=== PATIENT | female | born 1945 | race African-American/Black ===

== ENCOUNTER 2025-07-06 15:16 | Outpatient (AMB) | payer MEDICARE, SELFPAY ==
--- OUTSIDE RECORDS SUMMARY | 2024-01-05 09:00 | XMS_ITS ---
Author Organization [facility] [place] Address [address] [place] [address] Care Team Providers Care Liner Checker Name Role Phone Migration, Provider Unavailable Unavailable REASON FOR VISIT Follow-up Appt Encounters Encounter Location Date Provider Diagnosis [address] [place] [address] 01/05/2024 Provider Migration Plan Of Treatment Next Appt Details Provider Name:Jennie White, 11/10/2025 02:00:00 PM, [address] [place] [address], [address], [place], [address], [phone] Progress Notes * GIANNA STAFFORDOB:1945 ( 80 yo F)Acc No.[id number]:01/05/2024 Progress Notes Patient: DEBBY CRAWFORD Provider: Tera dodson Migration :1945 A ge:78 Y S ex:Female Date:01/05/2024 Address:[address] [place], [place] [phone] Subjective: * Chief Complaints: * F ollow-up Appt * Ocular Surgical History: Objective: Vision Examination: * Electronic signature of Prov ider Migration on 07/06/2025 at 08:19 PM EST Sign off status: Pending * Provider: Tera dodson Migration Date: 0 01/05/2024 Generated for Printi ng/Faxing/eTransmitting on: 1 09/06/2024 08:19 PM EST
--- OUTSIDE RECORDS SUMMARY | 2024-05-10 08:30 | XMS_ITS ---
Author Organization [facility] [place] Address [address] [place] [address] Care Team Providers Care Government Affairs Fellow Name Role Phone Migration, Provider Unavailable Unavailable REASON FOR VISIT Follow-up Appt Encounters Encounter Location Date Provider Diagnosis [address] [place] [phone] 05/10/2024 Provider Migration Plan Of Treatment Next Appt Details Provider Name:Jennie White, 11/10/2025 02:00:00 PM, [address] [place] [address], [address] [facility], [place], [address], [phone] Progress Notes * GIANNA STAFFORDOB:1945 ( 80 yo F)Acc No.[id number]:05/10/2024 Progress Notes Patient: DEBBY CRAWFORD Provider: Tera dodson Migration :1945 A ge:79 Y S ex:Female Date:05/10/2024 Address:[address] [place], [place] [phone] Subjective: * Chief Complaints: * F ollow-up Appt * Ocular Surgical History: Objective: Vision Examination: * Electronic signature of Prov ider Migration on 07/06/2025 at 08:20 PM EST Sign off status: Pending * Provider: Tera dodson Migration Date: Generated for Anhi ng/Fabrigidog/eTransmitting on: 1 09/06/2024 08:20 PM EST
--- OUTSIDE RECORDS SUMMARY | 2024-09-07 08:30 | XMS_ITS ---
Author Organization [facility] [place] Address [address] [place] [address] Care Team Providers Care Online Education Manager Name Role Phone Migration, Provider Unavailable Unavailable REASON FOR VISIT Follow-up Appt Encounters Encounter Location Date Provider Diagnosis [address] [place] [address] 09/07/2024 Provider Migration Plan Of Treatment Next Appt Details Provider Name:Jennie White, 11/10/2025 02:00:00 PM, [address] [place] [address], [address], [place], [address], [phone] Progress Notes * GIANNA STAFFORDOB:1945 ( 80 yo F)Acc No.[id number]:09/07/2024 Progress Notes Patient: DEBBY CRAWFORD Provider: Tera dodson Migration :1945 A ge:79 Y S ex:Female Date:09/07/2024 Address:[address] [place], [place] [phone] Subjective: * Chief Complaints: * F ollow-up Appt * Ocular Surgical History: Objective: Vision Examination: * Electronic signature of Prov ider Migration on 07/06/2025 at 08:20 PM EST Sign off status: Pending * Provider: Tera dodson Migration Date: 0 09/07/2024 Generated for Printi ng/Faxing/eTransmitting on: 1 09/06/2024 08:20 PM EST
--- OUTSIDE RECORDS SUMMARY | 2024-09-23 08:45 | XMS_ITS ---
Author Organization [facility] [place] Address [address] [place] [address] Care Team Providers Care Oil Truck Driver Name Role Phone Migration, Provider Unavailable Unavailable REASON FOR VISIT Follow-up Appt Encounters Encounter Location Date Provider Diagnosis [address] [place] [address] 09/23/2024 Provider Migration Plan Of Treatment Next Appt Details Provider Name:Jennie White, 11/10/2025 02:00:00 PM, [address] [place] [address], [address], [place], [address], [phone] Progress Notes * GIANNA STAFFORDOB:1945 ( 80 yo F)Acc No.[id number]:09/23/2024 Progress Notes Patient: DEBBY CRAWFORD Provider: Tera dodson Migration :1945 A ge:79 Y S ex:Female Date:09/23/2024 Address:[address] [place], [place] [phone] Subjective: * Chief Complaints: * F ollow-up Appt * Ocular Surgical History: Objective: Vision Examination: * Electronic signature of Prov ider Migration on 07/06/2025 at 08:19 PM EST Sign off status: Pending * Provider: Tera dodson Migration Date: 0 09/23/2024 Generated for Printi ng/Faxing/eTransmitting on: 1 09/06/2024 08:19 PM EST
--- OUTSIDE RECORDS SUMMARY | 2024-09-23 08:45 | XMS_ITS ---
Author Organization [facility] [place] Address [address] [place] [address] Care Team Providers Care Retail Sales Associate Bilingual Name Role Phone Tim Hernandez Unavailable [phone] REASON FOR VISIT Follow-up Appt Encounters Encounter Location Date Provider Diagnosis [address] [place] [address] 09/23/2024 Tim Hernandez Plan Of Treatment Next Appt Details Provider Name:Jennie White, 11/10/2025 02:00:00 PM, [address] [facility], [address], [place], [address], [phone] Progress Notes * GIANNA STAFFORDOB:1945 ( 80 yo F)Acc No.[id number]:09/23/2024 Progress Notes Patient: DEBBY CRAWFORD Provider: Nilton MALONE :1945 A ge:79 Y S ex:Female Date:09/23/2024 Address:[address] [place], [place] [id number] Subjective: * Chief Complaints: * F ollow-up Appt * Ocular Surgical History: Objective: Vision Examination: * Electronic signature of Gallo Hernandez PA-C on 07/06/2025 at 08:20 PM EST Sign off status: Pending * Provider: Nilton MALONE Date: 0 09/23/2024 Generated for Printi ng/Faxing/eTransmitting on: 1 09/06/2024 08:20 PM EST
--- OUTSIDE RECORDS SUMMARY | 2025-01-27 09:00 | XMS_ITS ---
Author Organization [facility], [place] Address [address] [place] [address] Care Team Providers Care Hvac Manager Name Role Phone Jennie White [phone] Allergies Allergen (clinical drug ingredient) Drug/Non Drug Allergy documented on EMR Reaction Allergy Type Onset Date Status Sulfur Unknown Drug Allergy Active REASON FOR VISIT Follow-up Appt, congested Vital Signs Blood pressure systolic 151 mm Hg 01/28/20 25 Blood pressure diastolic 80 mm Hg 025 Heart Rate 59 /min 01/27/2025 Respiratory Rate 20 /min 01/27/2025 Height 5.4 in 01/27/2025 Weight 116 lbs 01/27/2025 BMI 2796.57 kg/m2 01/27/2025 Oximetry 98 % 01/27/2025 Height-cm 13.72 cm 01/27/2025 Weight-kg 52.62 kg 01/27/2025 unable to get temp Encounters Encounter Location Date Provider Diagnosis [facility] [address] [facility] [address] [place] [address] 01/27/2025 Jennie Cindy Plan Of Treatment Next Appt Details Provider Name:Jennie Sagmar, 11/10/2025 02:00:00 PM, [address] [facility], [address], [place], [address], [phone] Progress Notes * GIANNA STAFFORDOB:1945 ( 80 yo F)Acc No.[id number]:01/27/2025 Progress Notes Patient: Evon GRISELDADEBBY Provider: Kin White :1945 A ge:79 Y S ex:Female Date:01/27/2025 Address:[address] [place] [address], [place], [id number] Subjective: * Chief Complaints: * F ollow-up ApptCongested * Medications: N one * Allergies: S ulfur Objective: * Vitals: B P: 151/80 mm Hg, HR: 59 /min, RR: 20 /min, Oxygen sat %: 98 %, Ht: 5.4 in, Wt: 116 lbs, BMI: 2796.57 Index, Wt-k.62 kg, Ht-cm: 13.72 cm, Body Surface Area: 0.45. unable to get temp. * Electronic signature of Heat her White on 07/06/2025 at 08:20 PM EST Sign off status: Pending * Provider: Kin White Date: 0 01/27/2025 Generated for Dragan culver/Shahida/Justice on: 1 09/06/2024 08:20 PM EST
--- OUTSIDE RECORDS SUMMARY | 2025-03-29 10:45 | XMS_ITS ---
Author Organization [facility], [place] Address [address] [place] [address] Care Team Providers Care Warp Clamper Name Role Phone Jennie White Unavailable [phone] Allergies Allergen (clinical drug ingredient) Drug/Non Drug Allergy documented on EMR Reaction Allergy Type Onset Date Status Sulfur Unknown Drug Allergy Active REASON FOR VISIT MED REFILL, MEDS NOT ON FILE Medications Medication SIG (Take, Route, Frequency, Duration) Notes Start Date End Date Status Pravastatin Sodium 40 MG Tablet 1 tablet Orally Once a day Active Telmisartan 40 MG Tablet 1 tablet Orally Once a day Active Donepezil HCl 10 MG Tablet 1 tablet at b edtime Orally Once a day Active Claritin 10 MG Tablet 1 tablet Orally On ce a day Active Cetirizine HCl 10 MG Tablet 1 tablet Ora lly Once a day Active Sertraline HCl 50 MG Tablet 1 tablet Ora lly Once a day; Duration: 100 days Active OLANZapine 5 MG Tablet 1 tablet Orally O nce a day; Duration: 100 days Active Vital Signs Height 5.4 in 03/29/2025 Height-cm 13.72 cm 03/29/2025 Encounters Encounter Location Date Provider Diagnosis [address] [place] [address] 03/29/2025 Jennie White Depression, unspecified F32.A and Chronic dementia F03.90 Assessments Encounter Date Diagnosis (ICD Code) Assessment Notes Treatment Notes Treatment Clinical Notes Section Notes 03/29/2025 Depression, unspecified (ICD-10 - F32.A) 03/29/2025 Chronic dementia (ICD-10 - F03.90) Plan Of Treatment Medication Medication Name Sig Start Date Stop Date Notes Sertraline HCl 50 MG Tablet 1 tablet Ora lly Once a day; Duration: 100 days OLANZapine 5 MG Tablet 1 tablet Orally O nce a day; Duration: 100 days Next Appt Details Provider Name:Jennie White, 11/10/2025 02:00:00 PM, [address] [place] [address], [address], [place], [address], [phone] History and Physical Notes * HPI (History of Present Illness) Category Sub-Category Detail Notes Category Not es General Subjective: - Needs medication refills for Olanzapine and Sertraline. Already ran out of Olanzapine. - [facility] pharmacy reported they did not receive refill authorization from the office. - Patient is taking Olanzapine for agitation related to dementia. - Medication: Olanzapine 5mg, Sertraline 50mg. - No report of allergies. Objective: - No observable data mentioned in the dry wall finisher. Assessment: - Dementia with associated agitation. Plan: - Refill prescriptions for Olanzapine 5mg, provide 100 tablets with three refills. - Refill prescriptions for Sertraline 50mg, provide 100 tablets with three refills. - Patient advised to contact the office if there are any issues with pharmacy refills. Progress Notes * GIANNA STAFFORDOB:1945 ( 80 yo F)Acc No.[id number]:03/29/2025 Progress Notes Patient: DEBBY CRAWFORD Provider: Kin White :1945 A ge:80 Y S ex:Female Date:03/29/2025 Address:[address] [place], [place] [phone] Subjective: * Chief Complaints: * M ED REFILL, MEDS NOT ON FILE * HPI: G eneral: Subjective: - Needs medication refills for Olanzapine and Sertraline. Already ran out of Olanzapine. - [facility] pharmacy reported they did not receive refill authorization from the office. - Patient is taking Olanzapine for agitation related to dementia. - Medication: Olanzapine 5mg, Sertraline 50mg. - No report of allergies. Objective: - No observable data mentioned in the dry wall finisher. Assessment: - Dementia with associated agitation. Plan: - Refill prescriptions for Olanzapine 5mg, provide 100 tablets with three refills. - Refill prescriptions for Sertraline 50mg, provide 100 tablets with three refills. - Patient advised to contact the office if there are any issues with pharmacy refills. * Family History: F ather: . M other: . Healthcare Proxy- . * Medications: T akingClaritin 10 MG Tablet 1 tablet Orally Once a day Donepezil HCl 10 MG Tablet 1 tablet at bedtime Orally Once a day Cetirizine HCl 10 MG Tablet 1 tablet Orally Once a day Telmisartan 40 MG Tablet 1 tablet Orally Once a day Sertraline HCl 50 MG Tablet 1 tablet Orally Once a day Pravastatin Sodium 40 MG Tablet 1 tablet Orally Once a day OLANZapine 5 MG Tablet 1 tablet Orally Once a day Taking Claritin 10 MG Tablet 1 tablet Orally Once a day Taking Donepezil HCl 10 MG Tablet 1 tablet at bedtime Orally Once a day Taking Cetirizine HCl 10 MG Tablet 1 tablet Orally Once a day Taking Telmisartan 40 MG Tablet 1 tablet Orally Once a day Taking Sertraline HCl 50 MG Tablet 1 tablet Orally Once a day Taking Pravastatin Sodium 40 MG Tablet 1 tablet Orally Once a day Taking OLANZapine 5 MG Tablet 1 tablet Orally Once a day * Allergies: Marcy Bryantergies Verified. Objective: * Vitals: H t: 5.4 in, Ht-cm: 13.72 cm. Assessment: * Assessment: 1. D epression, unspecified - F32.A 2 . C hronic dementia - F03.90 ? Plan: * Treatment: 2. C hronic dementia Refill OLANZapine Tablet, 5 MG, 1 tablet, Orally, Once a day, 100 days, 100, Refills 3. * Electronic signature of Mandi White on 07/06/2025 at 08:20 PM EST Sign off status: Pending * Provider: Kin White Date: 0 03/29/2025 Generated for Dragan culver/Shahida/Justice on: 1 09/06/2024 08:20 PM EST
--- OUTSIDE RECORDS SUMMARY | 2025-06-06 08:30 | XMS_ITS ---
Author Organization [facility], [place] Address [address] [place] [address] Care Team Providers Care Boilermaker Industrial Boilers Name Role Phone Jennie White Unavailable [phone] Allergies Allergen (clinical drug ingredient) Drug/Non Drug Allergy documented on EMR Reaction Allergy Type Onset Date Status Sulfur Unknown Drug Allergy Active REASON FOR VISIT 4MO F/U, flu shot today, report pt spits a lot and is congested Medications Medication SIG (Take, Route, Frequency, Duration) Notes Start Date End Date Status Cetirizine HCl 10 MG Tablet 1 tablet Orally Once a day Not-Taking Telmisartan 40 MG Tablet 1 tablet Orally Once a day Active Pravastatin Sodium 40 MG Tablet 1 tablet Orally Once a day; Duration: 90 days Active Sertraline HCl 50 MG Tablet 1 tablet Orally Once a day; Duration: 100 days Active OLANZapine 5 MG Tablet 1 tablet Orally O nce a day; Duration: 100 days Active Claritin 10 MG Tablet 1 tablet Orally On ce a day Active Donepezil HCl 10 MG Tablet 1 tablet at bedtime Orally Once a day Active Immunizations Vaccine Route Administration Date Status Comme nts Influenza, high dose seasonal IM Intramuscular 06/06/2025 Administered Social History Section Notes: Denies nicotine, ETOH and abebe bstances Vital Signs Blood pressure systolic 120 mm Hg 06/06/20 25 Blood pressure diastolic 86 mm Hg 025 Height 5.4 in 06/06/2025 Weight 119 lbs 06/06/2025 BMI 2868.9 kg/m2 06/06/2025 Height-cm 13.72 cm 06/06/2025 Weight-kg 53.98 kg 06/06/2025 Encounters Encounter Location Date Provider Diagnosis [facility] [address] [place] [address] 06/06/2025 Jennie White Plan Of Treatment Next Appt Details Provider Name:Jennie White, 11/10/2025 02:00:00 PM, [address] [place] [address], [address], [place], [address], [phone] Progress Notes * GIANNA STAFFORDOB:1945 ( 80 yo F)Acc No.[id number]:06/06/2025 Progress Notes Patient: DEBBY CRAWFORD Provider: Kin White :1945 A ge:80 Y S ex:Female Date:06/06/2025 Address:[address] [place] [address], [facility] Subjective: * Chief Complaints: * 4 MO F/UFlu shot todayHusband report pt spits a lot and is congested * Family History: F ather: . M other: . Healthcare Proxy- . * Social History: Social History Verified. D enies nicotine, ETOH and substances. * Medications: T akingClaritin 10 MG Tablet 1 tablet Orally Once a day Donepezil HCl 10 MG Tablet 1 tablet at bedtime Orally Once a day Telmisartan 40 MG [...] at bedtime Orally Once a day Taking Telmisartan 40 MG Tablet 1 tablet Orally Once a day Taking Sertraline HCl 50 MG Tablet 1 tablet Orally Once a day Taking OLANZapine 5 MG Tablet 1 tablet Orally Once a day Taking Pravastatin Sodium 40 MG Tablet 1 tablet Orally Once a day Not-TakingCetirizine HCl 10 MG Tablet 1 tablet Orally Once a day Not-Taking Cetirizine HCl 10 MG Tablet 1 tablet Orally Once a day * Allergies: S ulfuryesAllergies Verified. Objective: * Vitals: B P: 120/86 mm Hg, Ht: 5.4 in, Wt: 119 lbs, BMI: 2868.9 Index, Wt-k.98 kg, Ht-cm: 13.72 cm, Body Surface Area: 0.45. Plan: * Immunizations: Influenza, high dose seasonal : 0.5 mL (Dose No:1) (Route: Intramuscular) given by Lisa Nixon on Left Deltoid * Procedure Codes: 9 0662 FLU VACC PRSV FREE INC [id number] IMMUNIZATION ADMIN Billing Information: * Procedure Codes: 94201 FLU VACC PRSV FREE INC ANTIG. 40560 IMMUNIZATION ADMIN. * Electronic signature of Mandi White on 07/06/2025 at 08:20 PM EST Sign off status: Pending * Provider: Kin White Date: 08/06/2024 Generated for Dragan culver/Shahida/Justice on: 09/06/2024 08:20 PM EST
--- NOTE | 2025-07-06 15:21 | MHC.OFFVIS ---
Intake Visit Reasons: 6M AD Accompanied by: Spouse Allergies No Known Allergies Allergy (Verified 07/06/25 15:26) Medication List - Last Reconciled 07/06/25 by Bruna Nelson CNP donepezil 10 mg PO BEDTIME 90 days olanzapine 5 mg PO DAILY pravastatin 40 mg PO DAILY sertraline 50 mg PO DAILY HPI Comments Details: She was doing okay. Memory was about the same. Occasionally she would not recognize and would ask him who he was. She needed help with dressing and showering.?Appetite was so-so, drinks Ensure and Boost. Able to feed herself. Mood was okay for the most part. Sleep was okay. She tripped and fell a few months ago, seen at [facility] ER without any injuries.? Occasionally spits out medications. Has had cognitive decline and progressive memory loss over the last couple of years, becomes agitated and angry easily and gets combative. She has no insight into her condition. 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 She has 3 children, 2 sons and 1 daughter, who live in [facility]. She lives with her of more than 40 years. [facility] Medical History (Updated 07/06/25 @ 15:25 by Bruna Nelson CNP) Hyperlipidemia Hypertension Alzheimer's dementia Review of Systems Const Denies chills, Denies daytime sleepiness, Denies difficulty sleeping, Denies fatigue, Denies fever(s), Denies frequent falls, Denies headache(s), Denies increased appetite, Denies poor appetite, Denies snoring, Denies weakness, Denies weight gain and Denies weight loss Eyes Denies loss of vision ENT Denies vertigo, Denies dizziness, Denies headache(s) and Denies neck pain Card Denies chest pain at rest, Denies chest pain with activity, Denies syncope, Denies leg edema, Denies palpitations, Denies dyspnea and Denies dyspnea on exertion Resp Denies cough, Denies dyspnea, Denies dyspnea on exertion and Denies snoring GI Denies abdominal pain, Denies constipation, Denies heartburn, Denies diarrhea and Denies nausea Denies urinary frequency, Reports urinary incontinence and Denies urinary urgency Musc Denies abnormal gait, Denies back pain, Denies myalgias, Denies arthralgias, Denies neck pain, Denies numbness and Denies tingling Neuro Denies abnormal gait, Denies vertigo, Denies dizziness, Denies syncope, Denies frequent falls, Denies headache(s), Denies lack of coordination, Denies loss of vision, Reports memory loss, Denies numbness, Denies Other visual disturbances, Denies restless legs, Denies seizure-like activity, Denies tingling, Denies paresthesias, Denies tremor(s) and Denies weakness Psych Denies anxiety, Denies depression, Denies auditory hallucinations, Reports memory loss and Denies visual hallucinations Endo Denies fatigue and Denies palpitations Physical Exam Const Other: General Appearance:? normal, in no acute distress. Heart:? S1, S2 normal, no murmurs. Lungs:? clear anteriorly and posteriorly. Musculoskeletal:? normal. Extremities:? no edema. Psych:? alert, as below. Neuro Other: Abnormal Neurological Findings:?MMSE < 14/30. Hard of hearing. She was unable to tell me her age. She was able to tell me her month and date, and eventually gave correct year after few tries. She was able to tell me that she was here with her . Mental Status: alert, as below. Cranial Nerves: Pupils are equal, round, and reactive to light. External ocular muscles are intact. Visual marcum are full, no ptosis. Face is symmetrical, no facial weakness or droop. Facial sensations are normal. Tongue protrudes in midline. Palate elevates symmetrically. Shoulder shrugging is normal Motor Examination: Normal muscle tone, bulk and strength. No atrophy or fasciculations. No drift of the extended upper extremities. DTR 2+. Plantars are flexor. Sensory Exam: Normal light touch, temperature, pinprick, vibration, and joint-position sensations. Rhomberg sign is absent. Coordination: No ataxia. No titubation. Gait Exam: Slow and cautious. Extrapyramidal System: No tremor, rigidity with normal facial expressions. No bradykinesia. No bradyphrenia. Normal arm swing and posture. No propulsion or retropulsion. Speech: Normal. MMSE Level of Consciousness: Alert. Orientation: Does not know year, month, date, day and season. Does not know correct city, county and state. Does not know correct location and floor. Registration: Able to register 3 objects. Attention: Serial 7's unable. Recall: Able to recall 0 out of 3 objects. Language: Normal spontaneous speech Total Score: <14/30. Results Reviewed Results Reviewed: 08/09/21 EEG- WNL Labs normal Assessment & Plan Assessment & Plan (1) Alzheimer's dementia: Code(s): G30.9 - Alzheimer's disease, unspecified; F02.80 - Dementia in other diseases classified elsewhere, unspecified severity, without behavioral disturbance, psychotic disturbance, mood disturbance, and anxiety Category: Medical Qualifiers: Alzheimer's disease onset: unspecified onset Dementia severity: unspecified severity Dementia behavioral or psychological symptom: unspecified whether behavioral, psychotic, or mood disturbance or anxiety Qualified Code(s): G30.9 - Alzheimer's disease, unspecified; F02.80 - Dementia in other diseases classified elsewhere, unspecified severity, without behavioral disturbance, psychotic disturbance, mood disturbance, and anxiety Plan: Continue donepezil 10mg 1 tablet at bedtime. Follow up in 6 months or sooner as needed. Coding Level of Care Code Est Pt Level 4 (50336) Diagnoses Alzheimer's dementia, unspecified dementia severity, unspecified timing of dementia onset, unspecified whether behavioral, psychotic, or mood disturbance or anxiety G30.9; F02.80 Alzheimer's disease onset: unspecified onset Dementia severity: unspecified severity Dementia behavioral or psychological symptom: unspecified whether behavioral, psychotic, or mood disturbance or anxiety
--- OUTSIDE RECORDS SUMMARY | 2025-07-06 20:19 | XMS_ITS | Patient Health Record ---
Author Organization [facility] [place] Address [address] [place] [address] Care Team Providers Care Silver Plater Name Role Phone MichoacanoTim salas Unavailable [phone] Migration, Provider Unavailable Unavailable Jennie White Unavailable [phone] Allergies Allergen (clinical drug ingredient) Drug/Non Drug Allergy documented on EMR Reaction Allergy Type Onset Date Status Sulfur Unknown Drug Allergy Active Reason For Referral No Information Medications Medication SIG (Take, Route, Frequency, Duration) Notes Start Date End Date Status Claritin 10 MG Tablet 1 tablet Orally On ce a day Active Donepezil HCl 10 MG Tablet 1 tablet at bedtime Orally Once a day Active Cetirizine HCl 10 MG [...] nce a day; Duration: 100 days Active Immunizations Vaccine Route Administration Date Status Comme nts Influenza, high dose seasonal IM Intramuscular 06/06/2025 Administered Social History Section Notes: Denies nicotine, ETOH and abebe bstances Vital Signs Heart Rate 59 /min 01/27/2025 unable to get t emp Respiratory Rate 20 /min 01/27/2025 unable to g et temp Height-cm 13.72 cm 06/06/2025 Oximetry 98 % 01/27/2025 unable to get t emp Blood pressure diastolic 86 mm Hg 06/06/2025 Weight-kg 53.98 kg 06/06/2025 Height 5.4 in 06/06/2025 Blood pressure systolic 120 mm Hg 06/06/2025 Weight 119 lbs 06/06/2025 BMI 2868.9 kg/m2 06/06/2025 Encounters Encounter Location Date Provider Diagnosis [facility] [place] [address] [facility] [address] [place] [phone] 09/07/2024 Provider Migration [facility] [place] [address] [facility] [address] [place] [phone] 09/23/2024 Provider Migration [facility] [place] [address] [facility] [address] [place] [phone] 09/23/2024 Tim Hernandez [facility] [place] [address] [facility] [address] [facility] [address] [place] [phone] 01/27/2025 Jennieher White [facility], [address] [phone] 03/29/2025 Jennieher White Depression, unspecified F32.A and Chronic dementia F03.90 [facility], [address] [phone] 06/06/2025 Jennieher White [facility], [address] [place] [phone] 03/28/2025 Jennie White [facility], [address] [place] [phone] 05/05/2025 Jennie Victorinomar Assessments Encounter Date Diagnosis (ICD Code) Assessment Notes Treatment Notes Treatment Clinical Notes Section Notes 03/29/2025 Depression, unspecified (ICD-10 - F32.A) 03/29/2025 Chronic dementia (ICD-10 - F03.90) Plan Of Treatment Next Appt Details Provider Name:Jennie White, 11/10/2025 02:00:00 PM, [address] [place] [address], Suite [facility], [place], [address], [phone] Insurance Providers Payer Name Payer Address Payer Phone Subscriber Number Group Number Insured Name Patient Relationship to Insured Coverage Start Date Coverage End Date [employer] [address] VERENA LOVELACE [phone] [id number] DEBBY STAFFORD Self - patient is the insured [facility] [address] RAGHAV ROMANO [phone] [id number] DEBBY STAFFORD Self - patient is the insured
--- OUTSIDE RECORDS SUMMARY | 2025-07-06 20:20 | XMS_ITS | Clinical Summary ---
Author Organization [address] [place] [address] Phone Care Team Providers Care Commercial Carpet Installer Name Role Phone Manuel Jorge MD Primary Care Provider [phone] Allergies Active Allergy Reactions Criticality Noted Date Comments Sulfa (Sulfonamide Antibiotics) 11/18 Surgical History Surgery Date Site/Laterality Comments CARPAL TUNNEL RELEASE Bilateral Medical History Medical History Date Comments Alzheimer dementia ([facility] V24, [facility] V28) Hypertension Social History Tobacco Use Types Packs/Day Years Used Date Smoking Tobacco: Former Cigarettes Smokeless Tobacco: Never Tobacco Cessation:Counseling Given: Not Answered Alcohol Use Standard Drinks/Week Comments Never 0 (1 standard drink = 0.6 oz pur e alcohol) Comments Unknown Sex and Gender Information Value Date Recorded Sex Assigned at Not on file Legal Sex Female 10:43 PM EST Gender Identity Not on file Sexual Orientation Not on file Last Filed Vital Signs Vital Sign Reading Time Taken Comments Blood Pressure 154/85 11/27/2024 9:27 PM EDT Pulse 58 11/27/2024 9:27 PM EDT Temperature 36.2 C (97.2 F) 11/27/2024 9:27 PM EDT Respiratory Rate 16 11/27/2024 9:27 PM EDT Oxygen Saturation 96% 11/27/2024 6:44 PM EDT Inhaled Oxygen Concentration - - Weight 51.7 kg (114 lb) 11/27/2024 4:36 PM EDT Height 157.5 cm (5' 2 ) 11/27/2024 4:36 PM EDT Body Mass Index 20.85 11/27/2024 4:36 PM EDT Plan of Treatment Health Maintenance Due Date Last Done Comments DTaP,Tdap,and Td Vaccines (1 - Tdap) 1964 Pneumococcal Vaccine: 50+ Years (1 of 1 - PCV) 1993 Zoster Vaccines (1 of 2) 1993 Falls Risk Assessment 06/23/2022 Osteoporosis Screening (Bone Density Screening) 06/23/2022 Social Influencers of Health Screening 06/23/2022 Medicare Annual Wellness Visit 08/27/2023 08/27/2022 Depression Screening 07/21/2024 COVID-19 Vaccine ( season) 2025 05/13/2024, 04/15/2023, 05/29/2022, Additional history exists Influenza Vaccine (#1) 2025 , 06/21/2021, 05/17/2019, Additional history exists Cholesterol Screening (Lipid Panel) 09/23/2029 09/23/2024 RSV Immunization Adult Patients Completed 05/19/2023 HIB Vaccines Aged Out No longer eligi ble based on patient's age to complete this topic HPV Vaccines Aged Out No longer eligi ble based on patient's age to complete this topic Hepatitis A Vaccines Aged Out No long er eligible based on patient's age to complete this topic Hepatitis B Vaccines Aged Out No long er eligible based on patient's age to complete this topic IPV Vaccines Aged Out No longer eligi ble based on patient's age to complete this topic MMR Vaccines Aged Out No longer eligi ble based on patient's age to complete this topic Meningococcal ACWY Vaccine Aged Out N o longer eligible based on patient's age to complete this topic Meningococcal B Vaccine Aged Out No l onger eligible based on patient's age to complete this topic RSV Immunization Patients Under 20 months Aged Out No longer eligible based on patient's age to complete this topic Varicella Vaccines Aged Out No longer eligible based on patient's age to complete this topic Procedures Procedure Name Priority Date/Time Associated Diagnosis Comments LIPID PANEL WITH REFLEX TO DIRECT LDL Routine 09/23/2024 2:26 PM EST Essential hypertension, malignant Hyperlipemia Pretibial myxedema from Last 3 Months or Most Recently Relevant to Health Maintenance Results * (ABNORMAL) Lipid panel with reflex to direct LDL (09/23/2024 2:26 PM EST) Cholesterol 208(H) 0 - 200 mg/dL LAB CHEMISTRY METHOD 09/23/2024 4:19 PM [facility] Triglycerides 84 0 - 150 mg/dL LAB CHEMISTRY METHOD 09/23/2024 4:19 PM [facility] HDL 77 >=40 mg/dL LAB CHEMISTRY METHOD 09/23/2024 4:19 PM [facility] LDL Calculated 114(H) 0 - 100 mg/dL LAB CHEMISTRY METHOD 09/23/2024 4:19 PM [facility] VLDL Cholesterol Rainer 16.8 mg/dL LAB CHEMISTRY METHOD 09/23/2024 4:19 PM [facility] Non HDL Chol. (LDL+VLDL) 131 <145 mg/dL LAB CHEMISTRY METHOD 09/23/2024 4:19 PM [facility] Chol/HDL Ratio 2.7 0.0 - 4.4 LAB CHEMISTRY METHOD 09/23/2024 4:19 PM [facility] Blood Venous blood specimen / Unknown Venipuncture / Unknown 09/23/2024 2:26 PM EST 09/23/2024 3:29 PM EST us Tim MALONE LAB BLOOD ORDERABLES Final Res ult [facility] [address] [place] [address], from Last 3 Months or Most Recently Relevant to Health Maintenance Insurance [employer] Care Teams Commercial Carpet Installer Relationship Specialty Start Date End Date Manuel Jorge MD [address] [place] [address] PCP - General Internal Medicine 11/27/24
--- OUTSIDE RECORDS SUMMARY | 2025-07-06 20:20 | XMS_ITS | Encounter Summary ---
Author Organization [facility] Address [address] [facility] [address] [place] [address] Care Team Providers Care Claim Attorney Name Role Phone Jose Raul Bui MD Primary Care Provider [phone] Jose Raul Bui MD Unavailable [phone] Reason for Visit * Reason Comments Med Refill Encounter Details Date Type Department Care Team (Late st Contact Info) Description 10/02/2024 Refill [facility] [address] [facility] [place] [id number] Michael Andrew MD [address] [place] [phone] Herpes simplex virus (HSV) infection Social History Tobacco Use Types Packs/Day Years Used Date Smoking Tobacco: Former Smokeless Tobacco: Never Comments Unknown Sex and Gender Information Value Date Recorded Sex Assigned at Not on file Legal Sex Female 2:47 AM EST Gender Identity Not on file Sexual Orientation Not on file documented as of this encounter Plan of Treatment Not on file documented as of this encounter Visit Diagnoses Diagnosis Herpes simplex virus (HSV) infection documented in this encounter Care Teams Claim Attorney Relationship Specialty Start Date End Date Jose Raul Bui MD [address] [place] [address] PCP - General 08/24/21 Jose Raul Bui MD [address] [place] [address] 08/24/21 documented as of this encounter
--- OUTSIDE RECORDS SUMMARY | 2025-07-06 20:20 | XMS_ITS | Clinical Summary ---
Author Organization [facility] Address [address] [facility] [address] [place] [address] Care Team Providers Care Front Desk Clerk Name Role Phone Jose Raul Bui MD Primary Care Provider [phone] Jose Raul Bui MD Unavailable [phone] Allergies No known active allergies Medications Lac-Hydrin Five 5 % lotion in the morning and at bedtime. 1 Active clobetasol (Temovate) 0.05 % cream Apply topically in the morning and at bedtime. 1 Active donepezil (Aricept) 10 mg tablet Take 10 mg by mouth at bedtime. 2 Active pravastatin (Pravachol) 40 mg tablet Take 40 mg by mouth in the morning. 2 Active sertraline (Zoloft) 25 mg tablet Take 25 mg by mouth in the morning. 2 Active telmisartan-hyd rochlorothiazid (MIcarDIS HCT) 40-12.5 mg tablet Take 1 tablet by mouth in the morning. 1 Active loteprednol etabonate (Lotemax) 0.5 % ointmentIndicat ions:Keratoconj unctivitis sicca of both eyes not specified as Sjogren's Apply 1/4 inch at bedtime to both eyes 5 g 11 3 Active valACYclovir (Valtrex) 500 mg tabletIndicatio ns:Herpes simplex virus (HSV) infection TAKE 1 TABLET BY MOUTH EVERY DAY 90 tablet 3 4 Active Active Problems Problem Noted Date Diagnosed Date Blepharitis of upper and lower eyelids of both e yes 11/17/2020 10/31/2022 Unspecified ectropion of left lower eyelid 02/1910/31/2022 Allergic conjunctivitis of both eyes 01/13/2018 10/31/2022 Trichiasis of left lower eyelid 11/28/2017 10/31/2022 Conjunctivochalasis of left eye 01/03/2017 10/31/2022 Dry eye syndrome of both eyes 11/01/2016 Herpes simplex keratitis of both eyes 11/01/2016 10/31/2022 Overview (10/31/2022): 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 10/31/2022 Keratitis 08/14/2016 10/31/2022 Primary open angle glaucoma (POAG) of both eyes 08/14/2016 10/31/2022 Overview (10/31/2022): - Primary open angle glaucoma, cm; Right Eye Mild, Left Eye Severe (H40.1111, H40.1123) Social History Tobacco Use Types Packs/Day Years Used Date Smoking Tobacco: Former Smokeless Tobacco: Never Tobacco Cessation:Counseling Given: Not Answered Comments Unknown Sex and Gender Information Value Date Recorded Sex Assigned at Not on file Legal Sex Female 2:47 AM EST Gender Identity Not on file Sexual Orientation Not on file Plan of Treatment Health Maintenance Due Date Last Done Comments Bone Density Scan 1943 DTaP/Tdap/Td Vaccines (1 - Tdap) 1962 Pneumococcal Vaccine: 50+ Years (1 of 1 - PCV) 1993 Zoster Vaccines (1 of 2) 1993 Medicare Annual Wellness (AWV) 01/19/2016 Depression Screening 07/21/2024 COVID-19 Vaccine ( season) 2025 05/29/2022, 12/10/2021, 06/07/2021, Additional history exists Influenza Vaccine (#1) 2025 HIB Vaccines Aged Out No longer eligi ble based on patient's age to complete this topic HPV Vaccines (No Doses Required) Completed Hepatitis A Vaccines Aged Out No long [...] patient's age to complete this topic Meningococcal Vaccine Aged Out No spencer deric eligible based on patient's age to complete this topic Rotavirus Vaccines Aged Out No longer eligible based on patient's age to complete this topic Insurance MEDICARE PART A AND B [place] MEDICARE PLUS SUPPLEMENT Care Teams Front Desk Clerk Relationship Specialty Start Date End Date Jose Raul Bui MD [address] [place] [address] PCP - General 08/24/21 Jose Raul Bui MD [address] [place] [id number] 08/24/21
--- OUTSIDE RECORDS SUMMARY | 2025-07-06 20:21 | XMS_ITS ---
Author Name [facility] Organization Unknown Encounters Encounter Type Encounter Reason Primary Diagnosis Location Date [facility]ulatory [facility] 11/29/2024 [facility] 05/18/2024 Care Team Organization Name Specialty Phone Email Start Date End [facility] Critical [facility] Medical Group 11/13/2024 [facility] Manuel [facility] 08/22/2024 [facility] Jose Raul [place] [facility] 02/05/2024 [facility] Jose Raul [place] [facility] 05/28/2022
== END 2025-07-06 15:35 | disposition home or self-care (01) ==
LOC: HO.HSM 15:16
PROVIDERS: PCP Internal Medicine; Referring Provider Internal Medicine; Visit Provider Registered Nurse
DX: G30.9 Alzheimer's disease, unspecified (principal); F02.80 Dementia in other diseases classified elsewhere, unspecified severity, without behavioral disturbance, psychotic disturbance, mood disturbance, and anxiety
CPT/HCPCS: 99214

== ENCOUNTER → 2025-07-06 15:16 | Outpatient (BNVA) | payer MEDICARE, SELFPAY | PROVIDERS: PCP Internal Medicine; Referring Provider Internal Medicine; Visit Provider Registered Nurse | DX: G30.9 Alzheimer's disease, unspecified (principal); F02.80 Dementia in other diseases classified elsewhere, unspecified severity, without behavioral disturbance, psychotic disturbance, mood disturbance, and anxiety | CPT/HCPCS: 99212 ==